=== PATIENT | male | born 1970 | race Caucasian/White ===

== ENCOUNTER → 2021-12-28 09:42 | Outpatient (CLI) | payer OTHER, SELFPAY ==
[2021-12-28 11:29] LABS: COVID19 -Nasal RAPID Negative (Negative)
== END ==
PROVIDERS: Visit Provider Surgery
DX: Z20.822 Contact with and (suspected) exposure to COVID-19 (principal); Z01.812 Encounter for preprocedural laboratory examination
CPT/HCPCS: 87635; C9803

== ENCOUNTER 2021-12-29 13:43 | Day surgery (SDC) | payer OTHER, SELFPAY ==
--- NOTE | 2021-12-29 | PATH_ITS ---
[facility] Accession Number: [id number] No. of containers..03 Tissue . 01 Material submitted: . PART A: stomach - STOMACH BIOPSY PART B: colon - DESCENDING COLON POLYP PART C: colon - TRANSVERSE COLON POLYP . 01 Diagnosis: A. Stomach, Biopsy: Antral and body-type mucosa with mild chronic gastritis. Negative for Helicobacter by immunohistochemistry. Negative for intestinal metaplasia. Negative for dysplasia and malignancy. . B. Descending Colon, Polyp, Biopsy: Hyperplastic polyp. . C. Transverse Colon, Polyp, Biopsy: Colonic mucosa with no diagnostic abnormality, consistent with polypoid redundancy. Negative for dysplasia and malignancy. MRV 01/01/2022 1615 Local . 01 Electronically signed: . Lorraine Arthur MD, Pathologist NPI- [id number] . 01 Gross description: . Part A: STOMACH BIOPSY: Received in formalin are 2 fragment(s) of dobbs, soft tissue measuring 0.3 x 0.1 x 0.1 cm to 0.2 x 0.2 x 0.1 cm submitted entirely in 1 cassette(s) Part B: DESCENDING COLON POLYP: Received in formalin is 1 fragment(s) of dobbs, soft tissue measuring 0.3 x 0.3 x 0.2 cm to 0.2 x 0.2 x 0.1 cm submitted entirely in 1 cassette(s) Part C: TRANSVERSE COLON POLYP: Received in formalin is 1 fragment(s) of dobbs, soft tissue measuring 0.5 x 0.3 x 0.1 cm submitted entirely in 1 cassette(s) /CPE 12/30/2021 0531 Local . 01 Microscopic: . A. An immunohistochemical stain was performed to evaluate for Helicobacter organisms and is negative. The control stain showed appropriate reactivity. . * This test was developed and its performance characteristics determined by [employer]. It has not been cleared or approved by the [place]. Food and Drug Administration. The FDA has determined that such clearance or approval is not necessary. This test is used for clinical purposes. It should not be regarded as investigational or for research. . 01 Pathologist provided ICD-10: K63.5 . 01 CPT . 896398, 364275, 003413, D79731 Performed at: 01 [facility] [address] [place] [address], [place], [place] [id number] MD Gilberto Storm MD Phone: [phone]
[2021-12-29 14:24] VITALS: BP 114/80; PULSE 68; RESP 16; TEMP 37; O2SAT 98; BMI 40.1
[2021-12-29] MEDS: LACTATED RINGERS 1,000 ML 200 ML IV (14:41)
--- NOTE | 2021-12-29 15:03 | PM.PREOP ---
Pre-operative Note Interval Note History & Physical reviewed/Exam performed by Physician: Yes Changes to H&P: No
[2021-12-29] MEDS: LIDOCAINE 4% SOLN 50 ML 20 ML TOP (15:17)
[2021-12-29] MEDS: MIDAZOLAM 5 MG/5 ML VIAL 11 MG IV (15:32)
[2021-12-29] MEDS: fentaNYL 100 MCG/2 ML INJ 200 MCG IV (15:32)
--- NOTE | 2021-12-29 15:45 | P.OP.EGD&C_ITS ---
Operative Date/Time/Diagnoses Date of procedure: 12/29/21 Time of procedure: 15:45 Pre-op diagnosis: Blood per rectum Post-op diagnosis: other (Gastritis, colonic polyps) Procedure & Clinicians Study performed: Esophagoduodenoscopy and colonoscopy Same procedure as scheduled: Yes Indications: Blood per rectum Surgeon: Danish Gonzalez Procedure Notes Procedure in detail: Medications: Conscious sedation using 11mg IV midazolam and 200mcg IV of fentanyl The history and physical was performed/updated and the patient is ASA class is 2 . The procedure was discussed in detail with the patient. Potential risks complications including infection, bleeding, missed diagnosis, perforation, need for surgery, and were explained. Their questions were answered and informed consent was obtained. Patient placed in left lateral decubitus position. Time out was performed. Procedural sedation was administered with Versed and Fentanyl. A bite block was placed. the scope was inserted into the mouth and advanced through the esophagus and into the stomach. The stomach was notable for diffuse mild gastritis there were flecks of clot no distinct ulcer. The pylorus was intubated and the duodenum also notable for mild duodenitis. The scope was retroflexed within the stomach and there was a small hiatal hernia. Biopsy of the stomach was performed with forceps. The scope was withdrawn into the esophagus the Z line was seen at 35 cm from the incisions. There was no Warren's esophagitis or masses or strictures. Stomach was desufflated and scope removed. Patient tolerated procedure well. Examination began with a thorough inspection of the perianal area there was no evidence of fissures, fistulae, external hemorrhoids or cutaneous malignancy. The colonoscopy scope was then placed into the anal canal and was advanced to th e cecum, which was identified by the ileocecal valve, the appendiceal orifice and the confluence of the taenia. The scope was then slowly withdrawn examining colon thoroughly in all directions, irrigating it of any residual stool. FINDINGS 1. Descending colonic polyp 5mm removed with biopsy forceps 2. Transverse colonic polyp 5mm removed biopsy forceps The patient tolerated the procedure well. They will be discharged once criteria are met. The prep was of good/excellent quality. The withdrawl time was 7 minutes. The sedation time was 25 minutes. Specimen(s): other (Gastric biopsy, descending transverse colonic polyps) Complications: none Post-procedure Plan for aftercare: Stop aspirin. Continue omeprazole. Will notify with biopsy results Disposition: same day surgery
[2021-12-29 15:46] VITALS: BP 120/60; PULSE 78; RESP 18; TEMP 36.3; O2SAT 96
[2021-12-29 15:51] VITALS: BP 135/79; PULSE 77; RESP 18; O2SAT 96
[2021-12-29 15:57] VITALS: BP 131/71; PULSE 78; RESP 16; O2SAT 96
[2021-12-29 16:03] VITALS: BP 143/74; PULSE 75; RESP 18; TEMP 36.3; O2SAT 96
[2021-12-29 16:34] VITALS: BP 115/78; PULSE 78; RESP 16; TEMP 36.4; O2SAT 97
== END 2021-12-29 16:54 | disposition home or self-care (01) ==
PROVIDERS: PCP Student in an Organized Health Care Education/Training Program; Referring Provider Surgery; Visit Provider Surgery
PROC: 0DJ08ZZ Inspection of Upper Intestinal Tract, Via Natural or Artificial Opening Endoscopic (ICD-10-PCS; CPT 43235; principal; 2021-12-29 15:00)
PROC: 0DJD8ZZ Inspection of Lower Intestinal Tract, Via Natural or Artificial Opening Endoscopic (ICD-10-PCS; CPT 45378; 2021-12-29 15:00)
DX: K92.1 Melena (principal); Z85.46 Personal history of malignant neoplasm of prostate; I10 Essential (primary) hypertension; E66.9 Obesity, unspecified; Z68.41 Body mass index [BMI] 40.0-44.9, adult; K44.9 Diaphragmatic hernia without obstruction or gangrene; K29.80 Duodenitis without bleeding; K29.50 Unspecified chronic gastritis without bleeding; K63.5 Polyp of colon
CPT/HCPCS: 45380; 43235; 99152; 99153; J2250; J3010